=== PATIENT | female | born 1970 | race Caucasian/White ===

== ENCOUNTER 2022-01-29 12:38 | Outpatient (CLI) | payer BC, SELFPAY ==
[2022-01-29 13:37] LABS: Hematocrit 35.6 % (37.0-47.0); Hemoglobin 10.9 g/dL (12.0-15.0)
== END 2022-01-29 12:39 | disposition home or self-care (01) ==
LOC: ANHSURGERY 12:42
PROVIDERS: PCP Nurse Practitioner; Visit Provider Obstetrics & Gynecology
DX: Z01.812 Encounter for preprocedural laboratory examination (principal); Z92.0 Personal history of contraception
CPT/HCPCS: 36415; 85014; 85018

== ENCOUNTER 2022-02-01 00:48 | Day surgery (SDC) | payer BC, SELFPAY ==
--- NOTE | 2022-01-24 15:33 | SUR.PREOP ---
Report to the Outpatient Waiting Room, entrance under the green pavilion located off [facility], at time 1230 on date 02/01/22. OR Time: 1430. Time changes happen often and if your time is changed the preop area will call you the afternoon before. - You and your visitor will be asked to self-screen and do not enter if you have any COVID symptoms. - Only one visitor and NO children visitors are allowed at this time. - The patient visitor is requested to leave or wait in car when not with patient due to restrictions. - A mask is required within the hospital. Patients may have clear liquids (water, carbonated beverages, clear teas, apple juice) until 3 hours prior to surgery with a maximum of 20 ounces. - No food from midnight until time of surgery BEFORE 1130 AM - Infants may have breast milk until 4 hours before surgery, infant formula 6 hours prior to surgery. - Children will be allowed to drink immediately following surgery. If applicable, please bring a bottle or sippy cup to assist with drinking. Juice, water, soda, and popsicles are readily available. For infants on formula, please bring formula the day of surgery. Pacifiers are allowed. Take the following medications with a SIP of water the morning of surgery: ____HOLD MORNING MEDS Medications to discontinue per physician __MULTIVITAMINS FOR 3 DAYS Date to take last dose Please no make-up, nail indian, hairspray, perfume, deodorant, or body powder the day of surgery. No jewelry (including any body piercings) or valuables the day of surgery, leave them at home. Please take a shower or bath the night before, or the morning of, surgery with an antibacterial soap. Wear comfortable, loose fitting clothing. Children are encouraged to wear pajamas. - Jewelry must be removed prior to entering the operating room. Rings and piercings that are not removed may be cut off. - The hospital will not accept responsibility for valuables. - Please leave all valuables, including medications, at home the day of surgery. If you are going home after surgery, a licensed tour driver must drive you home. - NO public transportation without another adult. - We recommend that an adult stay with you for 24 hours following discharge. - We also recommend that you do not drive, make important decision, drink alcoholic beverages, or take any drugs that were not prescribed by your health care provider for at least 24 hours after your discharge time. For Pediatric surgeries, we recommend two adults accompany the child home (only one inside the building at this time). Follow any additional instructions given to you from your surgeon. If you or anyone in your household have experienced Covid symptoms in the past week, please notify your surgeon or the nurse liaison at the phone number below for possible testing. Telephone instructions given to PATIENT and asked if any additional questions and then verbalized understanding. Patient advised to call surgeon office or pre surgery nurse liaison [phone] if any additional questions.
--- NOTE | 2022-01-29 15:06 | P.HP_ITS ---
H&P: HPI History of Present Illness Date/Time: 01/29/22 15:06 Chief Complaint: Vaginal bleeding Narrative: Is a 51-year-old female with vaginal bleeding refractory to medical therapy. She will undergo hysteroscopy/dilatation curettage/Amber ablation. Risks and benefits reviewed including not exclusive of , aspiration pneumonia, bleeding, transfusion, perforation injury to bowel, bladder, ureters, or other internal organs with need for open laparotomy. She had all questions answered and asked to proceed PMFSH Surgical History Surgical History History of breast implant Family History Family History Grandparent Ovarian cancer Stomach cancer Father Heart disease Hypertension Mother Hypertension Social History Social History Smoking status: Never smoker Second hand tobacco smoke exposure: No Alcohol intake: never Substance use: never Substance use type: does not use Additional occupation/education comments: Works at [employer] concerns: No Meds Home Medications and Allergies Home Medications Medication Instructions Recorded Confirmed Type ferrous sulfate 325 mg (65 mg 325 mg PO BID 01/24/22 01/24/22 History iron) tablet (Iron (ferrous sulfate)) multivitamin 1 tablet PO DAILY 01/24/22 01/24/22 History Allergies Allergy/AdvReac Type Severity Reaction Status Date / Time amoxicillin Allergy Mild SICK Verified 01/24/22 15:29 Exam Const: General: cooperative, healthy appearing and comfortable Nutritional Appearance: average body habitus Orientation/consciousness: oriented to person, oriented to place and oriented to time Resp: Effort & Inspection: normal respiratory effort Cardio: Rate: regular rate Rhythm: regular rhythm Heart sounds: S1 normal heart sound present and S2 normal heart sound present GI: Inspection: normal to inspection : External Female Exam: normal external appearance Speculum Exam - Vagina: normal appearance of the vagina and vaginal bleeding Speculum Exam - Cervix: normal appearance of the cervix Bimanual exam- vagina & uterus: enlarged Bimanual Exam- Adnexa, other: normal adnexae Assessment and Plan Assessment and plan (1) Vaginal bleeding: Code(s): N93.9 - Abnormal uterine and vaginal bleeding, unspecified Status: Acute Plan Hysteroscopy/dilatation curettage/Amber ablation
--- NOTE | 2022-01-31 15:45 | WPDANESEPPF ---
Anes - Initial Pre Proc Eval Procedure: Operation Date: 02/01/22 14:30 Proposed Procedures p Hysteroscopy Dilation and Curettage Amber Endometrial Ablation - Tiago Aguirre MD Date/Time: 01/31/22 15:45 Surgeon: Tiago Aguirre MD Pre Op Diagnosis: Heavy Bleeding Patient Data Age: 51 Gender: F Height: 1.6 m Weight: 51.26 kg Allergies Allergy/AdvReac Type Severity Reaction Status Date / Time amoxicillin Allergy Mild SICK Verified 02/01/22 13:09 Home Medications Medication Instructions Recorded Confirmed Type ferrous sulfate 325 mg (65 mg 325 mg PO BID 01/24/22 02/01/22 History iron) tablet (Iron (ferrous sulfate)) multivitamin 1 tablet PO DAILY 01/24/22 02/01/22 History hydrocodone 5 mg-acetaminophen 325 1 tablet PO Q4H PRN pain #20 tabs 02/01/22 Rx mg tablet Patient hx anesthesia problems: none Family hx anesthesia problems: none Results Review: All pre-operative results and documents have been reviewed as part of the pre-operative evaluation. [facility] Surgical History Surgical History History of breast implant Family History Family History Grandparent Ovarian cancer Stomach cancer Father Heart disease Hypertension Mother Hypertension Social History Social History Smoking status: Never smoker Second hand tobacco smoke exposure: No Alcohol intake: never Substance use: never Substance use type: does not use Living arrangements: with family Additional occupation/education comments: Works at [email or web address] concerns: No Anes - Eval Final PreProcedure Day of Procedure 01/31/22 15:45 Patient weight: overweight Heart: regular rate and rhythm Lungs: clear to auscultation and normal air movement Airway: Mallampati scale class II Neurological: alert and oriented Last oral intake: >/= 8 hours ASA classification: I Emergent: no Anesthetic plan: proceed Anesthesia type and monitoring: general GIVS and LMA Results Review: All pre-operative results and documents have been reviewed as part of the pre-operative evaluation. Informed Consent: The patient's anesthetic plan and its attendant risks and benefits were discussed with the patient/family/POA. Questions were solicited and answers provided to the satisfaction of the patient/family/POA.
--- NOTE | 2022-02-01 06:27 | WPDHPUPDATE1 ---
History and Physical Update Update Date/Time: 02/01/22 06:27 History and Physical has been reviewed, including an updated exam of the patient. There are NO changes in the patient's condition. Risks, benefits, and alternatives have been discussed and questions answered. Patient agrees to proceed with procedure.
[2022-02-01 12:47] VITALS: BP 142/79; PULSE 72; RESP 16; TEMP 37.4; O2SAT 100
[2022-02-01] MEDS: ACETAMINOPHEN 500 MG TABLET 1000 MG PO (13:24)
[2022-02-01] MEDS: LACTATED RINGERS 1,000 ML 30 ML IV CONT (13:36)
[2022-02-01] MEDS: LIDOCAINE HCL 1% PF 30 ML VIAL INFILTRATE (15:07)
--- NOTE | 2022-02-01 15:28 | W.PM.PROC2 ---
Procedure Note - Detailed Date of Procedure 02/01/22 Pre-op Diagnosis Heavy Bleeding Post-op Diagnosis Other (Uterine polyps) Procedure Performed Hysteroscopy/dilatation and curettage/polypectomy/Amber ablation Surgeon Tiago Aguirre MD Anesthesia MAC and Local Indications Is a 51-year-old female with heavy bleeding refractory to medical therapy Findings Uterus sounded to 8cm. Polypoid tissue was seen at the uterine fundus Description of Procedure The patient was prepped draped in the normal sterile fashion placed in dorsal lithotomy position. Under excellent IV sedation weighted speculum was placed in posterior fornix of vagina. The anterior lip of the cervix grasped with a single-tooth tenaculum. 2.5cc of 1% xylocaine anesthesia placed at 2, 4, 8, 10:00 a.m. of the cervix. Uterus sounded to 8cm. Serial dilatation with fragmented dilators performed followed by passage of the 5mm visualizing hysteroscope. Normal saline was used as visualizing medium. Thick endometrial tissue was seen and each fallopian tube os could be seen. Polypoid lesion was noted at the fundus and this was grasped with the polyp forceps and removed piecemeal. The uterus was then scraped over the entire 360? until good grating sound was heard. When no further tissue could be removed those instruments removed. The Amber instrument was placed in the uterus at the appropriate settings. The uterine lining was burned for 120seconds. The hysteroscope was reinserted and a good burn was noted. This was then withdrawn and the instruments removed. The patient went to recovery in satisfactory condition. All sponge, needle, instrument counts were correct. There were no immediate complications Estimated Blood Loss 5 Drains No Packing No Pathology Yes Complications No immediate complications Condition Stable Disposition PACU
[2022-02-01 15:31] VITALS: BP 116/69; PULSE 61; RESP 12; O2SAT 96
[2022-02-01 16:01] VITALS: BP 113/72; PULSE 55; RESP 16; O2SAT 96
[2022-02-01 16:31] VITALS: BP 146/82; PULSE 48; RESP 16
== END 2022-02-01 16:40 | disposition home or self-care (01) ==
PROVIDERS: PCP Nurse Practitioner; Visit Provider Obstetrics & Gynecology
PROC: 0U5B8ZZ Destruction of Endometrium, Via Natural or Artificial Opening Endoscopic (ICD-10-PCS; CPT 58563; principal; 2022-02-01 14:30)
DX: N92.0 Excessive and frequent menstruation with regular cycle (principal); N84.0 Polyp of corpus uteri
CPT/HCPCS: 58563; 88305; A9270; J2250; J2704; J3010; J7030; J7120

== ENCOUNTER 2023-07-01 00:20 | Day surgery (SDC) | payer BC, SELFPAY ==
[2023-06-04 14:17] VITALS: BMI 20.5
--- NOTE | 2023-06-27 12:59 | SUR.PREOP ---
Patient called regarding upcoming procedure. Voicemail left regarding appointment times.
--- NOTE | 2023-06-30 15:05 | PM.HPGS ---
History of Present Illness History of Present Illness Consent: Risks, benefits, and alternatives have been discussed and questions answered. Patient agrees to proceed with procedure. Chief complaint: Gastritis,Abdominal Pain,ulcerative Colitis Narrative: Millicent Keller is a 52 year old female With a history of ulcerative colitis who has been having left-sided abdominal pain. Review of Systems Review of Systems: All systems reviewed & are unremarkable except as noted in HPI and below PMFSH Past Medical History Medical History (Updated 07/01/23 @ 11:46 by Tiago Tompkins MD) HTN (hypertension) Surgical History Surgical History History of breast implant Family History Family History Grandparent Ovarian cancer Stomach cancer Father Heart disease Hypertension Mother Hypertension Social History Social History Smoking status: Never smoker Second hand tobacco smoke exposure: No Alcohol intake: never Substance use: never Substance use type: does not use Living arrangements: alone Occupation/Education: occupation Additional occupation/education comments: Works at [employer] concerns: No Meds Home Medications and Allergies Home Medications Medication Instructions Recorded Confirmed Type amlodipine 5 mg tablet 5 mg PO DAILY #30 tabs 04/08/23 06/04/23 Rx Allergies Allergy/AdvReac Type Severity Reaction Status Date / Time amoxicillin Allergy Mild SICK Verified 06/26/23 07:05 Exam Const: General: alert Orientation/consciousness: patient oriented x3 Resp: Auscultation: clear to auscultation bilaterally Cardio: Rhythm: regular rhythm GI: GI Palp: Yes Soft to palpation and No Tenderness to palpation present (GI) Neuro: General: patient oriented x3 Assessment and Plan Assessment and plan (1) Chronic diarrhea: Code(s): K52.9 - Noninfective gastroenteritis and colitis, unspecified Status: Acute Assessment and Plan: Colonoscopy with possible biopsy or polypectomy or cautery or injection of substances.
[2023-07-01 11:05] VITALS: BP 140/86; PULSE 88; RESP 16; TEMP 36.8; O2SAT 100; BMI 19.2
[2023-07-01] MEDS: LACTATED RINGERS 1,000 ML 150 ML IV CONT (11:30)
--- NOTE | 2023-07-01 11:45 | P.PNAN_ITS ---
Anes - Initial Pre Proc Eval Procedure: Operation Date: 07/01/23 12:30 Proposed Procedures p Colonoscopy - Vicente Gao MD Date/Time: 07/01/23 11:45 Surgeon: Vicente Gao MD Pre Op Diagnosis: Gastritis,Abdominal Pain,ulcerative Colitis Patient Data Age: 52 Gender: F Height: 1.6 m Weight: 49.3 kg Last Vital Signs Temp 36.8 C 07/01/23 11:05 Pulse 88 07/01/23 11:05 Resp 16 07/01/23 11:05 BP 140/86 07/01/23 11:05 Pulse Ox 100 07/01/23 11:05 O2 Del Method Room Air 07/01/23 11:05 Allergies Allergy/AdvReac Type Severity Reaction Status Date / Time amoxicillin Allergy Mild SICK Verified 06/26/23 07:05 Home Medications Medication Instructions Recorded Confirmed Type amlodipine 5 mg tablet 5 mg PO DAILY #30 tabs 04/08/23 06/04/23 Rx Patient hx anesthesia problems: none Family hx anesthesia problems: none Results Review: All pre-operative results and documents have been reviewed as part of the pre- operative evaluation. [facility] Past Medical History Medical History (Updated 07/01/23 @ 11:46 by Tiago Tompkins MD) HTN (hypertension) Surgical History Surgical History History of breast implant Family History Family History Grandparent Ovarian cancer Stomach cancer Father Heart disease Hypertension Mother Hypertension Social History Social History Smoking status: Never smoker Second hand tobacco smoke exposure: No Alcohol intake: never Substance use: never Substance use type: does not use Living arrangements: alone Occupation/Education: occupation Additional occupation/education comments: Works at [employer] concerns: No Anes - Eval Final PreProcedure Day of Procedure 07/01/23 11:45 Patient weight: normal Heart: regular rate and rhythm Lungs: clear to auscultation Airway: Mallampati scale class II Neurological: alert and oriented Last oral intake: >/= 8 hours ASA classification: II Emergent: no Anesthetic plan: proceed Anesthesia type and monitoring: general GIVS and standard monitoring Results Review: All pre-operative results and documents have been reviewed as part of the pre- operative evaluation. Informed Consent: The patient's anesthetic plan and its attendant risks and benefits were discussed with the patient/family/POA. Questions were solicited and answers provided to the satisfaction of the patient/family/POA.
[2023-07-01 12:41] VITALS: BP 95/59; PULSE 70; RESP 16; O2SAT 98
[2023-07-01 12:51] VITALS: BP 111/75; PULSE 68; RESP 18; O2SAT 100
[2023-07-01 13:01] VITALS: BP 119/80; PULSE 66; RESP 18; O2SAT 100
== END 2023-07-01 13:11 | disposition home or self-care (01) ==
PROVIDERS: PCP Nurse Practitioner; Referring Provider Obstetrics & Gynecology; Visit Provider Internal Medicine Gastroenterology
PROC: 0DJD8ZZ Inspection of Lower Intestinal Tract, Via Natural or Artificial Opening Endoscopic (ICD-10-PCS; CPT 45378; principal; 2023-07-01 12:30)
DX: K51.20 Ulcerative (chronic) proctitis without complications (principal); I10 Essential (primary) hypertension
CPT/HCPCS: 45380; 88305; J2704; J7120